=== PATIENT | male | born 1980 | race Hispanic/Latino ===

== ENCOUNTER 2020-12-28 16:07 | Emergency (ER) | payer BC ==
[~2020-12-28] VITALS: Ht 175.3 cm; Wt 108.9 kg
== END 2020-12-28 17:59 | disposition home or self-care (01) ==
LOC: ER 16:28
DX: R20.2 Paresthesia of skin (principal); I10 Essential (primary) hypertension; Z86.718 Personal history of other venous thrombosis and embolism
CPT/HCPCS: 99283